=== PATIENT | male | born 1940 | race Caucasian/White ===

== ENCOUNTER 2017-03-19 16:29 | Inpatient (IN) | payer MEDICARE, OTHER, MEDICAID ==
[~2017-03-19] VITALS: Ht 175.3 cm; Wt 95.3 kg
--- NOTE | ~2017-03-19 | HP ---
PATIENT'S NAME: [facility] AGE: 76 Y [address] ROOM: [place] [address] [place] [facility] [place]: 03/19/2017 History & Physical DISCHARGE DATE: FAMILY PHYSICIAN: Malachi Abbott MD ATTENDING PHYSICIAN: Malachi Abbott DATE OF SERVICE: CHIEF COMPLAINT: Abscess. 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 The patient denies any chest pain, shortness of breath, fevers, chills, nausea, vomiting, or abdominal pain. The patient states that his stump had been feeling a little weird in the last couple of days and slightly painful, and that is why the MRI was performed. PAST MEDICAL HISTORY: 1. Atrial fibrillation. 2. BPH. 3. Chronic renal failure, stage 3. 4. Coronary artery disease. 5. Diabetes mellitus type 2, insulin dependent. 6. Diastolic congestive heart failure. 7. Essential hypertension. 8. Mixed hyperlipidemia. 9. History of NSTEMI. 10. Depression. 11. Nonproliferative retinopathy associated with diabetes. 12. Neuropathy associated with diabetes. 13. Peripheral vascular disease associated with diabetes. MEDICATIONS: Please see list. PAST SURGICAL HISTORY: 1. Abdominal aortogram. 2. Angiography. 3. Appendectomy. 4. BKA, right lower extremity. 5. CABG. 6. Colonoscopy. 7. Foot surgery. PATIENT'S NAME: [facility] AGE: 76 Y [address] ROOM: [place] [address] [place] [facility] [place]: 03/19/2017 History & Physical DISCHARGE DATE: FAMILY PHYSICIAN: Malachi Abbott MD ATTENDING PHYSICIAN: Malachi Abbott 8. Incision and drainage. 9. Stent placement. 10. Toe amputation. SOCIAL HISTORY: The patient denies any tobacco, alcohol, or illicit drug use but was a former tobacco user. FAMILY HISTORY: Noncontributory. ALLERGIES: NO KNOWN MEDICAL ALLERGIES. REVIEW OF SYSTEMS: A complete review of systems obtained, pertinent positives and negatives as mentioned in the HPI. OBJECTIVE: VITAL SIGNS: Temperature 97.0, pulse 61, respirations 20, blood pressure 116/55. GENERAL: The patient is alert and oriented. Appears in no acute distress. HEENT: Head: Normocephalic, atraumatic. Eyes: Conjunctivae clear. No scleral icterus. Mouth and Oropharynx: Mucosa moist and pink. No lesions or exudates. NECK: Supple. No lymphadenopathy or thyromegaly. HEART: Regular rate and rhythm. No rubs, murmurs, or gallops. LUNGS: Clear to auscultation bilaterally. ABDOMEN: Bowel sounds present. Nontender. EXTREMITIES: No cyanosis. Right lower extremity is mildly warm to touch at the BKA site but mildly erythematous. NEUROLOGIC: Cranial nerves 2 through 12 grossly intact. LABORATORY DATA: Hemoglobin is 10.3, white blood cell count is 8.5. Creatinine is 1.9 with a BUN of 67, and a blood sugar 292. INR is 2.64 and CRP is 1.73. ASSESSMENT: 1. Abscess, right lower extremity. 2. Chronic anticoagulation due to atrial fibrillation. 3. Diabetes mellitus type 2, insulin dependent. 4. Hypertension. 5. Chronic renal failure, stage 3. 6. Hyperlipidemia. 7. Congestive heart failure, diastolic. PATIENT'S NAME: XUAN SIDDIQUI [facility] AGE: 76 Y [address] ROOM: [place] [address] [place] [facility] [place]: 03/19/2017 History & Physical DISCHARGE DATE: FAMILY PHYSICIAN: Malachi Abbott MD ATTENDING PHYSICIAN: Malachi Abbott 8. Coronary artery disease. 9. Depression. PLAN: At this time, we will get peripheral blood cultures, and Dr. Wallace of Orthopedics has been consulted. I ordered Zyvox and Zosyn IV, but we are not to give those until okayed by Dr. Wallace. The patient will be n.p.o. after midnight, and we will start IV fluids. We will monitor the patient's sugars and adjust accordingly. The patient's INR is elevated, so we will give fresh frozen plasma now and then check 1 hour after it is given. We will hold his Lantus in the morning and recheck daily labs. We will monitor his heart failure and other comorbidities. MD ROSA PHOENIX/modl /[id number] D: [id number] T: [id number] HISTORY & PHYSICAL
--- NOTE | ~2017-03-19 | CON ---
PATIENT'S NAME: XUAN SIDDIQUI [facility] AGE: 76 Y [address] ROOM: [address] [address] [place] [facility] [place]: 03/19/2017 Consultation DISCHARGE DATE: 03/22/2017 FAMILY PHYSICIAN: Malachi Abbott MD ATTENDING PHYSICIAN: Malachi Abbott Corrected Cheif Compliant per physician 04/17/17 AOREFERRING PHYSICIAN: BRANDT FU MD CHIEF COMPLAINT: Right stump pain. HISTORY OF PRESENT ILLNESS: Mr. Siddiqui is a pleasant 76-year-old gentleman who has been referred to me by Dr. Dawn and his physician special education teaching assistant for increasing stump pain and discomfort. The patient had a below-knee amputation back in 2015. That operation was complicated by a fall onto the stump that lead to dehiscence. Dr. Dawn had to revise the stump. There was prolonged healing and suture abscesses that were dealt with. The stump has gone on to heal. The patient has done well with a prosthesis up until this point. Recently, he is having some increasing pain and discomfort. Aggravating factors include walking with the prosthesis, bending the knee, extending the knee, and not positioning the prosthesis appropriately when walking. Alleviating factors include rest, ice, elevation, and disuse of the prosthesis. The patient denies any constitutional symptoms such as fever, chills, or night sweats. He also denies any dizziness, chest pain, shortness of breath, blurred vision, nausea, vomiting, or diarrhea. I have been asked to see and evaluate the patient's right lower extremity. REVIEW OF SYSTEMS: A 10-point review of systems otherwise as mentioned above in the HPI. The patient issue pertains to his right lower extremity below-knee amputation stump. There is pain and tenderness to palpation and swelling. The skin is intact circumferentially. PAST MEDICAL HISTORY: Includes chronic kidney disease, previous below-knee amputation, diabetes mellitus, hypertension, and coronary artery disease. PAST SURGICAL HISTORY: Includes a right below-knee amputation with subsequent revision amputation after flap dehiscence by Dr. Dawn. FAMILY HISTORY: Noncontributory. SOCIAL HISTORY: PATIENT'S NAME: XUAN SIDDIQUI [facility] AGE: 76 Y [address] ROOM: [address] [address] [place] [facility] [place]: 03/19/2017 Consultation DISCHARGE DATE: 03/22/2017 FAMILY PHYSICIAN: Malachi Abbott MD ATTENDING PHYSICIAN: Malachi Abbott The patient lives at home. He ambulates with the assistance of his prosthetic. He denies any alcohol, tobacco, or illicit drug use. MEDICATIONS: See current reconciliation. PHYSICAL EXAMINATION: VITAL SIGNS. Currently, pending. GENERAL: The patient is awake, alert, oriented x3. He is sitting in the recliner chair. He is in no acute distress. He is actively conversing with me at the bedside. HEENT: Normocephalic and atraumatic. Extraocular movements are intact. PERRLA. Moist mucous membranes. The oropharyngeal airway is clear. NECK: Supple. Trachea is in the midline. CARDIOVASCULAR: Regular rate and rhythm. CHEST: Normal symmetric respirations observed bilaterally. ABDOMEN: Soft, nontender, nondistended. PELVIS: Stable. MUSCULOSKELETAL: Right lower extremity: Focal examination of the patient's right lower extremity reveals he is grossly neurologically intact distally. Compartments of the thigh and leg are soft. The stump is well-healed. There is fluctuance noted at the stump. There is some surrounding erythema at the stump. He has full range of motion of the knee and full strength at the quadriceps and hamstring. The knee collateral and cruciate ligament exam is stable. IMAGING STUDIES: An MRI of the right stump was performed. There appears to be evidence of a collection that could represent seroma versus abscess. The changes of the bone appeared to represent osteomyelitis. No plain radiographs were available for observation. LABORATORY DATA: CBC reveals a hemoglobin of 10.3, hematocrit of 32, white blood cell count of 8.5, and platelet count of 264. Chem-7 reveals a sodium of 135, potassium 5.1, chloride 103, CO2 of 25, BUN of 67, creatinine of 1.9, and glucose 292. Coagulation profile reveals a PT of 28, INR of 2.64, and PTT of 46. A CRP is 1.73 and ESR is 50. IMPRESSION: 1. 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 2. Chronic kidney disease. 3. Diabetes mellitus with prolonged wound healing from initial below-knee amputation and wound dehiscence after subsequent fall requiring revision below-knee amputation. PATIENT'S NAME: XUAN SIDDIQUI [facility] AGE: 76 Y [address] ROOM: [address] [address] [place] [facility] [place] DATE: 03/19/2017 Consultation DISCHARGE DATE: 03/22/2017 FAMILY PHYSICIAN: Malachi Abbott MD ATTENDING PHYSICIAN: Malachi Abbott PLAN: I had a long discussion with the patient in the presence of his family regarding the right below-knee amputation. I reviewed the advanced imaging. I believe that there is evidence of an abscess and osteomyelitis. The patient has pain at the stump and inflammatory mediated suggest that there could be infection as well. His white blood cell count is within normal limits. I have asked that antibiotics be held at this time. I will make the patient n.p.o. after breakfast tomorrow. I tried to take him to the operating room for irrigation and debridement of the right stump along with obtaining cultures and bone biopsy. I discussed the risks, benefits, and alternatives pursuing a surgical intervention in detail. I discussed the risk of anesthesia, new infection, bleeding, and/or injury to neurovascular structures. I explained that there is a chance that I may apply a negative pressure wound VAC, as well. I also explained there is a high likelihood that there would be a prolonged wound healing. I expressed understanding of this. Informed consent was obtained. They are willing to proceed with surgery. We will plan for surgery tomorrow afternoon. The patient will be nonweightbearing on the right lower extremity for now. Dr. Abbott will continue to manage the patient's concomitant medical comorbidities. We will plan for surgery tomorrow. MD WALLY WESTON/adriel /[id number] Corrected Cheif Compliant per physician 04/17/17 AO d: 03/20/17 0105 t: 04/18/17 0834, CONSULTATION REPORT
--- NOTE | ~2017-03-19 | ER ---
PATIENT'S NAME: XUAN SIDDIQUI [facility] AGE: 76 Y [address] ROOM: [id number] [place], [place] [address] [place] [facility] [place]: 03/19/2017 ER/Outpatient Report DISCHARGE DATE: FAMILY PHYSICIAN: Malachi Abbott MD ATTENDING PHYSICIAN: Malachi Abbott CHIEF COMPLAINT: Right leg pain. HISTORY OF PRESENT ILLNESS: The patient states that he has been doing well. However, he has been having some discomfort in his right BKA stump. He was seen at his [facility] recently and received an MRI today that was concerning for abscess of his right stump. His primary orthopedic surgeon, Dr. Dawn is not available and thus Dr. Wallace has agreed to take care of this patient surgically. He denies any fevers or chills, chest pain, cough, or shortness of breath. No nausea, vomiting, vision changes, weakness, numbness, tingling, or any new back pain. He only endorses chronic back pain and his chronic medical issues. PAST MEDICAL HISTORY: Very complicated, but most prominent for heart disease, hypertension, and diabetes. PAST SURGICAL HISTORY: Includes: 1. CABG. 2. Right BK amputation. 3. Some other orthopedic surgical repair. 4. Appendectomy. MEDICATIONS: Please see attached list. ALLERGIES: NO KNOWN DRUG ALLERGIES. REVIEW OF SYSTEMS: All systems reviewed and negative except as noted in the HPI. PHYSICAL EXAMINATION: VITAL SIGNS: Blood pressure 116/55, pulse 61, respiratory rate is 20, temperature 97.0, and SpO2 is 97% on room air. GENERAL: Age-appropriate male in no obvious pain or distress, sitting upright on the exam table. NEUROLOGIC: Awake and alert. GCS 15. No focal deficits. No asymmetry. PATIENT'S NAME: XUAN SIDDIQUI [facility] AGE: 76 Y [address] ROOM: [id number] [place], [place] [address] [place] [facility] [place]: 03/19/2017 ER/Outpatient Report DISCHARGE DATE: FAMILY PHYSICIAN: Malachi Abbott MD ATTENDING PHYSICIAN: Malachi Abbott HEENT: Normocephalic and atraumatic. Eyes are PERRL. Oropharynx is clear. NECK: Supple. Trachea is midline. CHEST: Heart is regular rate and rhythm with no murmurs. LUNGS: Clear to auscultation bilaterally with no rhonchi, wheezes, or rales. ABDOMEN: Soft, nontender, and nondistended. Obese, but otherwise unremarkable. SPINE: The back is normal to inspection and palpation. No acute tenderness. EXTREMITIES: Warm and well perfused except for the right. The right lower extremity is notable for a BKA stump. The stump is erythematous, slightly indurated, very warm, and slightly tender. No clear fluctuance. SKIN: Otherwise, intact. LABORATORY DATA AND IMAGING STUDIES: Labs and X-rays: EKG reveals sinus rhythm, ventricular rate of 55, first- degree heart block. Otherwise, normal EKG with left axis deviation. No signs of acute ischemia or dysrhythmia. Grossly stable compared to prior EKGs. Blood cultures are pending. Labs: CMS; sodium 135, potassium 5.1, chloride 103, CO2 is 25, glucose 292, BUN is 67, creatinine 1.9, and GFR is 35. LFTs grossly unremarkable. CRP is 1.73. WBC is 8.5, hemoglobin is 10.3, and platelets of 264,000. INR is 2.64, prothrombin time is 28, PTT is 46, and ESR is 50. Blood cultures are pending. IMPRESSION: 1. Right knee, [id number] amputation stump abscess. 2. Elevated inflammatory markers. 3. Therapeutic INR. EMERGENCY DEPARTMENT COURSE: The patient was seen and evaluated. No acute processes. He does need surgical debridement of his abscess. He will need to be admitted for medical optimization. It is unclear, if he requires antibiotics at this time, Dr. Wallace, should clarify. Dr. Abbott, patient's primary care will admit for medical optimization and clearance. All questions were answered. Otherwise, the patient was taken to the Medical Surgery Unit in stable condition. MD IRVIN ROWLEY/adriel /[id number] d: 03/20/17 0003 t: 03/20/17 1012, OUTPATIENT REPORT
--- NOTE | ~2017-03-19 | DS ---
PATIENT'S NAME: XUAN SIDDIQUI [facility] AGE: 76 Y [address] ROOM: [place] [address] [place]: [facility] [place]MIT DATE: 03/19/2017 Discharge Summary DISCHARGE DATE: 03/22/2017 FAMILY PHYSICIAN: Malachi Abbott MD ATTENDING PHYSICIAN: Malachi Abbott DISCHARGE DIAGNOSES: 1. Abscess right lower extremity at stump. 2. Diabetes mellitus type 2, insulin dependent. 3. Coronary artery disease. 4. Diastolic congestive heart failure. 5. Hypertension. 6. Chronic renal failure, stage 3. 7. Atrial fibrillation with chronic anticoagulation. 8. Hyperlipidemia. 9. Depression. 10. Anxiety. CONSULTS DURING ADMISSION: Dr. Wallace, Orthopedics. PROCEDURES DURING ADMISSION: Incision and drainage of right lower extremity on March 20, 2017. HOSPITAL COURSE: The patient is a 76-year-old male with known history of BKA that started feeling abnormal. The patient had MRI which showed possible abscess pocket, so he was admitted and Dr. Wallace consulted. Dr. Wallace took him to the OR and did incision and drainage and we started the patient then on linezolid and Zosyn. The patient's sugars, blood pressure, and hemoglobin remained stable throughout his hospital stay. His kidney function improved to a creatinine of 1.6 upon discharge. The patient's congestive heart failure also remained stable. The patient was placed on Lovenox to bridge. Upon day of discharge, the patient had a little bit of oozing from the wound and Dr. Wallace evaluated and re-dressed the wound and we held the Lovenox that morning. The patient's INR was supratherapeutic. Cultures were negative but Dr. Wallace wanted to continue linezolid for 10 more days. The patient upon day of discharge was stable and sent to [place]. DISCHARGE CONDITION: Stable. DISPOSITION: [place]. DISCHARGE MEDICATIONS: Please see list. DISCHARGE INSTRUCTIONS: The patient is follow up with Dr. Dawn, Orthopedics, as directed, with Dr. Abbott in approximately 2 weeks. They PATIENT'S NAME: XUAN SIDDIQUI [facility] AGE: 76 Y [address] ROOM: [place] [address] LOCATION: [facility] [place]MIT DATE: 03/19/2017 Discharge Summary DISCHARGE DATE: 03/22/2017 FAMILY PHYSICIAN: Malachi Abbott MD ATTENDING PHYSICIAN: Malachi Abbott are to check daily INRs, report them to Dr. Abbott. We will continue to bridge with Lovenox, but at a reduced dose. We are doing this because patient is sensitive to the Lovenox and with his renal function, we will only do 40 mg subcu. We will continue to have Wound Care to follow and monitor his renal function. MD ROSA PHOENIX/balajil /[id number] d: 03/22/17 1326 t: 04/01/172, DISCHARGE SUMMARY
--- NOTE | ~2017-03-19 | OR ---
PATIENT'S NAME: XUAN SIDDIQUI [facility] AGE: 76 Y [address] ROOM: [place] [address] [place]: [facility] [place] DATE: 03/19/2017 OR/Procedure Report DISCHARGE DATE: FAMILY PHYSICIAN: Malachi Abbott MD ATTENDING PHYSICIAN: Malachi Abbott SURGEON: Nilesh Wallace MD FURNACE BUILDER: None. DATE OF PROCEDURE: 03/20/2017 PREOPERATIVE DIAGNOSIS: Right below-knee amputation with distal tibia osteomyelitis and abscess. POSTOPERATIVE DIAGNOSIS: Right below-knee amputation with distal tibia osteomyelitis and abscess. PROCEDURE: 1. Irrigation and debridement of right below-knee amputation stump abscess and osteomyelitis, incision measuring 5cm x 5cm, included skin, subcutaneous tissue, muscle, fascia, and bone. 2. Biopsy of distal tibia bone. 3. Use of intraoperative fluoroscopy, less than 1 hour. ANESTHESIA: General endotracheal anesthesia. FLUIDS: See Anesthesia report. ESTIMATED BLOOD LOSS: Minimal. TOURNIQUET: Right proximal thigh 250 mmHg. SPECIMEN: Right below-knee amputation stump wound cultures and tibia bone biopsy. COMPLICATIONS: None. DISPOSITION: Stable in PACU. COUNTS: All counts correct. INDICATIONS: Mr. Siddiqui is a 76-year-old gentleman who underwent the noted procedures above. The risks, benefits, and alternatives pursuing surgical intervention were discussed in detail. I marked the right lower extremity indicating correct surgical site. Anesthesia was consulted for their perioperative evaluation of the patient. DESCRIPTION OF PROCEDURE: The patient was brought from the holding area to PATIENT'S NAME: XUAN SIDDIQUI [facility] AGE: 76 Y [address] ROOM: [place] [address] LOCATION: [facility] [place]MIT DATE: 03/19/2017 OR/Procedure Report DISCHARGE DATE: FAMILY PHYSICIAN: Malachi Abbott MD ATTENDING PHYSICIAN: Malachi Abbott the operating room. A time-out was performed. General endotracheal anesthesia was administered. Antibiotics were held for intraoperative cultures. Right lower extremity was then prepped and draped in a sterile fashion. I turned my attention to the right stump. I introduced intraoperative fluoroscopy and took pictures of the stump. I made an incision over the medial aspect of the stump, where there was a fluctuant collection of fluid. The fluctuant appeared to be deep and when the fluid pocket was incised a murky fluid appeared and the fluid was subsequently cultured. Based on fluoroscopy, I noted that there appeared to be some calcification of the distal tibia that were perhaps rubbing on this subcutaneous tissue and muscle flap. I used a rongeur to smooth back this edge. I did not dismantle the flap. The fluid cultures and bone specimen were sent to the lab for analysis. Intraoperative Gram stain revealed evidence of no organisms and few white blood cells. The wound was then copiously irrigated with a normal sterile saline solution via pulsatile lavage. The wound was closed using a 2-0 nylon suture in interrupted horizontal mattress fashion. The tourniquet was let down. Sterile dressing was placed in the form of Xeroform, followed by 4x4, Webril, and Shar bandage in the form of a stump dressing. The patient was then transferred from the operating table onto the stretcher and extubated. He was brought to the recovery room in stable condition. There were no intraoperative complications. IMPRESSION: The patient is status post the noted procedures above. PLAN: The patient will be nonweightbearing on the right lower extremity. Antibiotics were administered intraoperatively and will be continued till the intraoperative cultures are returned. Postoperative pain control in the form of Percocet and IV morphine as needed for pain. Dr. Abbott will continue to manage the patient's concomitant medical comorbidities. Physical Therapy and Occupational Therapy will be consulted for early ambulation and prevention of deconditioning. I will continue to monitor the patient closely in the postoperative period. PATIENT'S NAME: XUAN SIDDIQUI [facility] AGE: 76 Y [address] ROOM: [place] [address] LOCATION: [facility] [place] ADMIT DATE: 03/19/2017 OR/Procedure Report DISCHARGE DATE: FAMILY PHYSICIAN: Malachi Abbott MD ATTENDING PHYSICIAN: Malachi Abbott MD WALLY WESTON/modl /[id number] d: 03/20/17 2331 t: 05/25/17 0848, OPERATIVE SUMMARY
[~2017-03-19 16:29] MED LIST: ALDACTONE25 MG PO; ASPIRIN LO-DOSE81 MG PO; ATIVAN 1 MG1 MG PO; CALCITRIOL0.25 MCG PO; CELEXA20 MG PO; CELEXA40 MG PO; CITALOPRAM HBR40 MG PO; COLACE100 MG PO; COLCRYS0.6 MG PO; COUMADIN ** IA3 MG PO; COUMADIN ** IA5 MG PO; COUMADIN 4MG **4 MG PO; COZAAR25 MG PO; DESYREL50 MG PO; DULCOLAX10 MG R; FISH OIL1000 MG PO; FLOMAX0.4 MG PO; IMDUR30 MG PO; JUICE PLUS PO; K-TAB 10MEQ10 MEQ PO; KCL - MICRO-K10 MEQ PO; KEFLEX500 MG PO; KLONOPIN1 MG PO; LANTUS (IN100 UNIT/M SUB-Q; LANTUS SOL100 UNIT/1 SUB-Q; LASIX40 MG PO; LASIX80 MG PO; LOPRESSOR25 MG PO; MAVIK2 MG PO; MILK OF MA400 MG/5 M PO; MIRALAX17 GM PO; NORCO 5-325 TA1 EACH PO; NOVOLOG FL100 UNIT/1; NOVOLOG FL100 UNIT/1 SUB-Q; NOVOLOG100 UNIT/M SUB-Q; PLAVIX75 MG PO; PRAVACHOL40 MG PO; PROSCAR5 MG PO; RANEXA ER500 MG; RANEXA ER500 MG PO; REQUIP1 MG PO; TOPROL XL 5050 MG PO; TOPROL XL25 MG PO; TRAZODONE HCL50 MG PO; TYLENOL325 MG PO; ULORIC80 MG PO; ULTRAM50 MG; ULTRAM50 MG PO; VALIUM5 MG PO; XANAX0.5 MG PO; ZAROXOLYN2.5 MG PO; ZETIA10 MG PO
[2017-03-19 17:10] LABS: BASOPHIL % 0.1 %; EOSINOPHIL # 0.3 K/uL (0.0-0.5); EOSINOPHIL % 3.9 %; HEMOGLOBIN 10.3 g/dL (11.0-16.0); IMMATURE GRANULOCYTE % 0.4 %; LYMPHOCYTE # 1.3 K/uL (0.8-4.0); LYMPHOCYTE % 14.7 %; MCH 28.7 pg (27.0-34.0); MCHC 32.2 gm/dL (32.0-36.5); MCV 89.1 fl (83.0-98.0); MONOCYTE # 0.6 K/uL (0.0-1.0); MONOCYTE % 6.6 %; MPV 9.8 fl (9.4-12.4); NEUTROPHIL # (ANC) 6.3 K/uL (1.4-9.0); NEUTROPHIL % 74.3 %; NRBC % 0 /100WBC (0-0.00); PLATELET COUNT 264 K/uL (150-450); RBC 3.59 M/uL (3.50-5.50); WBC 8.5 K/uL (4.0-11.0)
[2017-03-19 17:21] LABS: INR - (THERAPEUTIC) 2.64 (0.92-1.07); PTT 46 SECONDS (25-32)
[2017-03-19 17:27] LABS: ALBUMIN 3.2 gm/dL (3.5-5.0); ANION GAP 12.1 (10.0-19.0); CALCIUM 8.3 mg/dL (8.5-10.5); CREATININE 1.9 mg/dL (0.6-1.3); POTASSIUM 5.1 mMol/L (3.7-5.1); TOTAL BILIRUBIN 0.3 mg/dL (0.0-1.5); TOTAL PROTEIN 6.6 g/dL (6.0-8.4)
[2017-03-19] MEDS ORDERED: MS CONTIN15 MG PO (19:17)
[2017-03-19] MEDS ORDERED: ADVAIR 250-501 EACH INH (19:18)
[2017-03-19] MEDS ORDERED: NITROSTAT0.4 MG SL (19:18)
[2017-03-19] MEDS ORDERED: OMEPRAZOLE40 MG PO (19:19)
[2017-03-19] MEDS ORDERED: ZAROXOLYN2.5 MG PO (19:19)
[2017-03-19 23:46] LABS: PROTIME 21.2 SECONDS (9.8-11.4)
[2017-03-20 05:52] LABS: BASOPHIL % 0.4 %; EOSINOPHIL # 0.4 K/uL (0.0-0.5); EOSINOPHIL % 5.2 %; HEMATOCRIT 31.3 % (37.0-53.0); HEMOGLOBIN 9.9 g/dL (11.0-16.0); IMMATURE GRANULOCYTE % 0.5 %; LYMPHOCYTE # 1.3 K/uL (0.8-4.0); LYMPHOCYTE % 17.3 %; MCH 28.1 pg (27.0-34.0); MCHC 31.6 gm/dL (32.0-36.5); MCV 88.9 fl (83.0-98.0); MONOCYTE # 0.6 K/uL (0.0-1.0); MPV 9.7 fl (9.4-12.4); NEUTROPHIL # (ANC) 5.2 K/uL (1.4-9.0); NEUTROPHIL % 68.6 %; NRBC % 0 /100WBC (0-0.00); PLATELET COUNT 252 K/uL (150-450); RBC 3.52 M/uL (3.50-5.50); WBC 7.5 K/uL (4.0-11.0)
[2017-03-20 06:01] LABS: INR - (THERAPEUTIC) 1.74 (0.92-1.07); PROTIME 18.4 SECONDS (9.8-11.4)
[2017-03-20 06:06] LABS: ANION GAP 11.8 (10.0-19.0); CALCIUM 8.7 mg/dL (8.5-10.5); CREATININE 1.5 mg/dL (0.6-1.3); POTASSIUM 4.8 mMol/L (3.7-5.1)
[2017-03-21 06:22] LABS: HEMATOCRIT 32.9 % (37.0-53.0); HEMOGLOBIN 10.2 g/dL (11.0-16.0); MCH 28.3 pg (27.0-34.0); MCV 91.1 fl (83.0-98.0); MPV 9.7 fl (9.4-12.4); PLATELET COUNT 234 K/uL (150-450); RBC 3.61 M/uL (3.50-5.50); WBC 7.4 K/uL (4.0-11.0)
[2017-03-21 06:45] LABS: ANION GAP 12.8 (10.0-19.0); CALCIUM 8.7 mg/dL (8.5-10.5); CREATININE 1.4 mg/dL (0.6-1.3); POTASSIUM 4.8 mMol/L (3.7-5.1)
[2017-03-21 07:04] LABS: ABSOLUTE NEUTROPHIL CT (ANC) 6.1 K/uL (1.4-9.0); LYMPHOCYTE # 0.4 K/uL (0.8-4.0); LYMPHOCYTE % 6 %; MONOCYTE # 0.4 K/uL (0.0-1.0); SEGMENTED NEUTROPHIL # 6.1 K/uL (1.4-9.0); SEGMENTED NEUTROPHIL % 83 %
[2017-03-21 10:57] LABS: INR - (THERAPEUTIC) 1.09 (0.92-1.07); PROTIME 11.5 SECONDS (9.8-11.4)
[2017-03-22 04:47] LABS: BASOPHIL % 0.1 %; EOSINOPHIL # 0.6 K/uL (0.0-0.5); HEMATOCRIT 30.1 % (37.0-53.0); HEMOGLOBIN 9.6 g/dL (11.0-16.0); IMMATURE GRANULOCYTE % 0.4 %; LYMPHOCYTE # 0.7 K/uL (0.8-4.0); LYMPHOCYTE % 8.9 %; MCH 28.5 pg (27.0-34.0); MCHC 31.9 gm/dL (32.0-36.5); MCV 89.3 fl (83.0-98.0); MONOCYTE # 0.5 K/uL (0.0-1.0); MPV 9.7 fl (9.4-12.4); NEUTROPHIL # (ANC) 5.6 K/uL (1.4-9.0); NEUTROPHIL % 75.6 %; NRBC % 0 /100WBC (0-0.00); PLATELET COUNT 225 K/uL (150-450); RBC 3.37 M/uL (3.50-5.50); WBC 7.4 K/uL (4.0-11.0)
[2017-03-22 05:03] LABS: ANION GAP 16.5 (10.0-19.0); CALCIUM 8.5 mg/dL (8.5-10.5); CREATININE 1.6 mg/dL (0.6-1.3); POTASSIUM 4.5 mMol/L (3.7-5.1)
[2017-03-22 09:13] LABS: INR - (THERAPEUTIC) 1.06 (0.92-1.07); PROTIME 11.1 SECONDS (9.8-11.4)
== END 2017-03-22 13:45 | DRG 478 ==
LOC: GMED 16:29 → GMSU 17:12
PROVIDERS: Emergency Medicine; ADMIT Family Medicine
PROC: 30233N1 Transfusion of Nonautologous Red Blood Cells into Peripheral Vein, Percutaneous Approach (ICD-10-PCS; principal; 2017-03-20)
PROC: 0QBG0ZX Excision of Right Tibia, Open Approach, Diagnostic (ICD-10-PCS; principal; 2017-03-20)
PROC: 0J9N0ZX Drainage of Right Lower Leg Subcutaneous Tissue and Fascia, Open Approach, Diagnostic (ICD-10-PCS; principal; 2017-03-20)
DX: M86.9 Osteomyelitis, unspecified (principal); T87.43 Infection of amputation stump, right lower extremity; I50.32 Chronic diastolic (congestive) heart failure; I13.0 Hypertensive heart and chronic kidney disease with heart failure and stage 1 through stage 4 chronic kidney disease, or unspecified chronic kidney disease; L02.91 Cutaneous abscess, unspecified; I48.91 Unspecified atrial fibrillation; F32.9 Major depressive disorder, single episode, unspecified; E78.5 Hyperlipidemia, unspecified; I25.10 Atherosclerotic heart disease of native coronary artery without angina pectoris; N18.3 Chronic kidney disease, stage 3 (moderate); Z79.01 Long term (current) use of anticoagulants; I25.2 Old myocardial infarction; E11.3299 Type 2 diabetes mellitus with mild nonproliferative diabetic retinopathy without macular edema, unspecified eye; E11.40 Type 2 diabetes mellitus with diabetic neuropathy, unspecified; E11.51 Type 2 diabetes mellitus with diabetic peripheral angiopathy without gangrene; Z79.4 Long term (current) use of insulin
CPT/HCPCS: J1170; J1650; J2001; J2020; J2543; J3010; J7030; J7050; J7060; P9017

== ENCOUNTER → 2017-03-23 | Outpatient (CLI) | payer MEDICARE, OTHER, MEDICAID ==
[~2017-03-23] MED LIST changes: +ADVAIR 250-501 EACH INH; +MS CONTIN15 MG PO; +NITROSTAT0.4 MG SL; +OMEPRAZOLE40 MG PO
[2017-03-23 08:30] LABS: BASOPHIL % 0.1 %; EOSINOPHIL # 0.5 K/uL (0.0-0.5); EOSINOPHIL % 6.2 %; HEMATOCRIT 28.1 % (37.0-53.0); HEMOGLOBIN 8.9 g/dL (11.0-16.0); IMMATURE GRANULOCYTE % 0.4 %; LYMPHOCYTE # 0.8 K/uL (0.8-4.0); LYMPHOCYTE % 10.2 %; MCH 28.5 pg (27.0-34.0); MCHC 31.7 gm/dL (32.0-36.5); MCV 90.1 fl (83.0-98.0); MONOCYTE # 0.5 K/uL (0.0-1.0); MONOCYTE % 5.9 %; MPV 10.3 fl (9.4-12.4); NEUTROPHIL # (ANC) 5.9 K/uL (1.4-9.0); NEUTROPHIL % 77.2 %; NRBC % 0 /100WBC (0-0.00); PLATELET COUNT 246 K/uL (150-450); RBC 3.12 M/uL (3.50-5.50); RDW-CV 14.2 % (11.9-14.6); WBC 7.6 K/uL (4.0-11.0)
[2017-03-23 08:35] LABS: INR - (THERAPEUTIC) 1.14 (0.92-1.07)
== END | disposition disaster alternative care site (69) ==
PROVIDERS: Family Medicine
DX: I48.91 Unspecified atrial fibrillation (principal); Z47.81 Encounter for orthopedic aftercare following surgical amputation; T87.81 Dehiscence of amputation stump

== ENCOUNTER → 2017-03-26 | Outpatient (CLI) | payer MEDICARE, OTHER, MEDICAID ==
[2017-03-26 09:59] LABS: INR - (THERAPEUTIC) 2.51 (0.92-1.07); PROTIME 26.6 SECONDS (9.8-11.4)
== END | disposition disaster alternative care site (69) ==
PROVIDERS: Family Medicine
DX: I48.91 Unspecified atrial fibrillation (principal)

== ENCOUNTER → 2017-05-22 | Outpatient (CLI) | payer MEDICARE, OTHER, MEDICAID | END | disposition disaster alternative care site (69) | LOC: LGSMG 11:13 | DX: I10 Essential (primary) hypertension (principal); N18.3 Chronic kidney disease, stage 3 (moderate) ==